=== PATIENT | male | born 1990 | race Caucasian/White ===

== ENCOUNTER → 2022-11-13 | Outpatient (CLI) | payer OTHER ==
--- NOTE | 2022-11-13 22:56 | US ---
EXAMINATION TYPE: US scrotum with doppler. Grayscale and color Doppler Duplex imaging performed of saleem null scrotum. DATE OF EXAM: 11/13/2022 COMPARISON: NONE CLINICAL INDICATION: Male, 31 years old with history of N45.1 EPIDIDYMITIS; Patient states left side swelling. No injury. No pain. No redness. EXAM MEASUREMENTS: TESTICLES: Right Testicle: 4.1 x 3.3 x 2.6 cm Left Testicle: 4.1 x 3.1 x 2.4 cm EPIDIDYMIS HEAD: Right Epididymis: 0.9 x 0.9 x 0.8 cm Left Epididymis: 0.9 x 1.0 x 0.7 cm Doppler performed to assess for testicular vascularity; good bilateral color flow and waveforms are s een. There is no evidence of testicular torsion. Presence of hydroceles: Bilateral Presence of varicoceles: no Right epididymal head cystic lesion = 0.3 x 0.4 x 0.3 cm. IMPRESSION: 1. Right epididymal cyst. 2. No acute ultrasound abnormality scrotal ultrasound
== END | disposition home or self-care (01) ==
LOC: RADUSWWP 08:28
PROVIDERS: ATTEND Family Medicine
DX: N50.3 Cyst of epididymis (principal); N45.1 Epididymitis
CPT/HCPCS: 76870; 93975

== ENCOUNTER → 2022-12-06 | Outpatient (CLI) | payer OTHER ==
--- NOTE | 2022-12-06 17:48 | CA ---
Transthoracic Echo Report Name: Kiet Gonzales Age: 31 Gender: M : 1990 Exam Date: 12/06/2022 10:48 Exam Location: [place] [facility] Ht (in): 70 Wt (lb): 235 Ordering Physician: Delfin Gatica DO Attending/Referring Phys: Hearing Health Technician [place] RDCS Procedure CPT: Indications: R01.1 cardiac murmur Cardiac Hx: Technical Quality: Contrast 1: Total Dose (mL): Contrast 2: Total Dose (mL): MEASUREMENTS (Male / Female) Normal Values 2D ECHO LV Diastolic Diameter PLAX 4.9 cm 4.2 - 5.9 / 3.9 - 5.3 cm LV Systolic Diameter PLAX 2.5 cm IVS Diastolic Thickness 1.1 cm 0.6 - 1.0 / 0.6 - 0.9 cm LVPW Diastolic Thickness 1.4 cm 0.6 - 1.0 / 0.6 - 0.9 cm LV Relative Wall Thickness 0.5 RV Internal Dim ED PLAX 3.5 cm LA Volume 64.8 cm??? 18 - 58 / 22 - 52 cm??? M-MODE Aortic Root Diameter MM 3.0 cm LA Systolic Diameter MM 3.9 cm LA Ao Ratio MM 1.3 AV Cusp Separation MM 2.3 cm DOPPLER AV Peak Velocity 169.6 cm/s AV Peak Gradient 11.5 mmHg AV Mean Velocity 122.4 cm/s AV Mean Gradient 6.6 mmHg AV Velocity Time Integral 34.0 cm LVOT Peak Velocity 165.2 cm/s LVOT Peak Gradient 10.9 mmHg LVOT Velocity Time Integral 32.5 cm MV Area PHT 2.5 cm??? Mitral E Point Velocity 134.7 cm/s Mitral A Point Velocity 81.5 cm/s Mitral E to A Ratio 1.7 MV Deceleration Time 301.2 ms MV E' Velocity 9.5 cm/s Mitral E to MV E' Ratio 14.2 TR Peak Velocity 173.6 cm/s TR Peak Gradient 12.0 mmHg Right Ventricular Systolic Press 17.0 mmHg FINDINGS Left Ventricle Normal Left ventricular size, wall thickness, systolic function with no obvious regional wall motion abnormalities. Normal Left ventricular diastolic filling pattern. Left ventricular ejection fraction is estimated at 55-60%. Right Ventricle Mild right ventricular dilatation. Right ventricular systolic pressure within normal limits. Right Atrium Normal right atrial size. Left Atrium Mildly increased left atrial volume. Mildly increased left atrial area. Mitral Valve Structurally normal mitral valve. Mild to moderate mitral regurgitation. Aortic Valve Trileaflet aortic valve. No aortic valve stenosis or regurgitation. Aortic valve sclerosis. Tricuspid Valve Structurally normal tricuspid valve. Mild tricuspid regurgitation. Pulmonic Valve Structurally normal pulmonic valve. Pericardium No pericardial effusion. Aorta Normal size aortic root and proximal ascending aorta. CONCLUSIONS 1. Normal left ventricular size and systolic function 2. [id number] mitral with mild tricuspid regurgitation and no evidence of pulmonary hypertension Previewed by: Dr. Regla Goddard MD (Electronically Signed) Final Date: 06 December 2022 17:47
== END | disposition home or self-care (01) ==
LOC: RADECHMAIN 10:32
PROVIDERS: ATTEND Family Medicine
DX: I36.1 Nonrheumatic tricuspid (valve) insufficiency (principal); R01.1 Cardiac murmur, unspecified
CPT/HCPCS: 93306